=== PATIENT | male | born 1945 | race Caucasian/White ===

== ENCOUNTER → 2022-09-07 07:03 | Outpatient (CLI) | payer MEDICARE, SELFPAY ==
--- NOTE | ~2022-09-07 | MR_ITS ---
EXAMINATION: MR shoulder RT wo con DATE: 09/07/2022 08:00 INDICATION: Right shoulder pain. Osteoarthritis of right acromioclavicular joint. TECHNIQUE: Magnetic resonance imaging (MRI) of the right shoulder was performed without intravenous c ontrast. COMPARISON: None. FINDINGS: Coracoacromial arch: The acromion undersurface is curved in morphology (type II). There is severe acromioclavicular joint osteoarthritis including inferiorly directed osteophytes. There is moderate subacromial/subdeltoid bu rsitis. Rotator cuff: There is a near full-thickness tear of supraspinatus tendon measuring 13 mm anterior to posterior by 4 mm proximal to distal. There is severe anterior infraspinatus tendinopathy. Teres minor tendon is n ormal. There is mild subscapularis tendinopathy. There is edema at the myotendinous junction of infra spinatus, consistent with mild strain. There is edema in supraspinatus muscle belly, consistent with subacute denervation. There is severe fatty atrophy of teres minor muscle belly, consistent with quad rilateral space syndrome. Biceps tendon and glenoid labrum: Biceps tendon is in bicipital groove. There is a complete tear of intra-articular biceps tendon. Fluid: There is a small glenohumeral joint effusion. Bones/cartilage: There is partial-thickness cartilage loss of glenoid and humeral head. IMPRESSION: 1. Full-thickness rotator cuff tear. 2. Mild glenohumeral joint chondrosis. 3. Severe acromioclavicular joint osteoarthritis. 4. Complete tear of proximal biceps tendon. 5. Small glenohumeral joint effusion and moderate subacromial/subdeltoid bursitis. Reviewed, dictated and finalized at location A. CONSULTANT IMPRESSION: 1. Full-thickness rotator cuff tear. 2. Mild glenohumeral joint chondrosis. 3. Severe acromioclavicular joint osteoarthritis. 4. Complete tear of proximal biceps tendon. 5. Small glenohumeral joint effusion and moderate subacromial/subdeltoid bursit is.
== END ==
PROVIDERS: PCP Family Medicine
DX: M19.011 Primary osteoarthritis, right shoulder (principal); M25.511 Pain in right shoulder; G89.29 Other chronic pain; M75.121 Complete rotator cuff tear or rupture of right shoulder, not specified as traumatic; S46.211A Strain of muscle, fascia and tendon of other parts of biceps, right arm, initial encounter; M25.411 Effusion, right shoulder; M75.51 Bursitis of right shoulder
CPT/HCPCS: 73221